=== PATIENT | female | born 1955 | race Caucasian/White ===

== ENCOUNTER 2022-07-01 07:30 | Inpatient (IN) ==
[2022-06-27 13:44] LABS: Basophils # (Auto) 0.08 K/mcL (0.00-0.30); Basophils % (Auto) 0.9 % (0.0-2.0); Eosinophils # (Auto) 0.21 K/mcL (0.00-0.70); Eosinophils % (Auto) 2.3 % (0.0-7.0); Hematocrit 41.6 % (34.1-44.9); Hemoglobin 13.6 g/dL (11.2-15.7); Lymphocytes # (Auto) 2.74 K/mcL (1.50-4.80); Lymphocytes % (Auto) 29.5 % (15.5-49.0); Mean Cell Volume 94.5 fL (80.0-100.0); Mean Corpuscular HGB Conc 32.7 g/dL (31.0-36.0); Mean Platelet Volume 11.4 fL (8.8-12.5); Monocytes % (Auto) 6.5 % (1.0-12.0); Neutrophils % (Auto) 60.5 % (38.0-78.0); Platelet Count 329 K/mcL (140-440); Red Cell Distribution Width 12.9 % (11.5-14.5); WBC 9.3 K/mcL (4.5-11.0)
[2022-06-27 13:53] LABS: INR 0.9 (0.9-1.1); Partial Thromboplastin Time 29.6 sec (20.0-37.0); Prothrombin Time 12.8 sec (11.9-14.5)
[2022-06-27 14:07] LABS: Appearance,Urine CLEAR (Clear); Bilirubin,Urine NEGATIVE (Negative); Color,Urine LT. YELLOW; Culture Indicated,Urine No; Glucose,Urine (UA) NEGATIVE (Negative); Ketones,Urine NEGATIVE (Negative); Leukocyte Esterase,Urine NEGATIVE /uL (Negative); Nitrate,Urine NEGATIVE (Negative); Protein,Urine NEGATIVE (Negative); Specific Gravity,Urine 1.015 (1.000-1.035); Urine Blood NEGATIVE ery/mcL (Negative); Urobilinogen,Urine Normal
[2022-06-27 14:22] LABS: Blood Urea Nitrogen 16 mg/dL (8-23); Calcium 9.7 mg/dL (8.6-10.4); Carbon Dioxide 27 mmol/L (22-30); Chloride 100 mmol/L (96-108); Glomerular Filtration Rate 52; Glucose 122 mg/dL (70-105)
[2022-06-27 16:05] LABS: Estimated Average Glucose(eAG) 166 mg/dL; Hemoglobin A1C 7.4 % Hgb (4.0-6.0)
--- NOTE | 2022-06-29 11:32 | EKG ---
[facility] Test Date: 2022-06-27 Pat Name: Laurita Truong Department: [facility] Room: Gender: Female Survey Statistician: : 1955 Requested By: Michael Rosado Order Number: [id number] Reading MD: Ameya Vasquez Measurements Intervals [place] Rate: 68 P: 63 DC: 160 QRS: 23 QRSD: 103 T: 9 QT: 429 QTc: 457 Interpretive Statements Sinus rhythm Low voltage, precordial leads Borderline T abnormalities, anterior leads Electronically Signed On 06-29-2022 11:31:46 PST by Ameya Vasquez /[id number]
[~2022-07-01 07:30] MED LIST: 0.9 % SODIUM CHLORIDE 9 ML, KETOROLAC 30 MG, ROPIVACAINE HCL/PF 49.5 ML, EPINEPHrine 0.... IJ SCH; ACETAMINOPHEN 500 MG TABLET PO SCH; CELECOXIB 200 MG CAPSULE PO SCH; PREGABALIN 75 MG CAPSULE PO SCH; ceFAZolin 2 GM in DEXTROSE 5% IN WATER 50 ML IV SCH; oxyCODONE 10 MG TAB.ER.12H PO SCH
[2022-07-01] MEDS ORDERED: LIDOCAINE HCL/PF 100 MG/5 ML SYRINGE IV ONE (14:19)
[2022-07-01] MEDS ORDERED: ONDANSETRON 4 MG/2 ML VIAL ONE (14:19)
[2022-07-01] MEDS ORDERED: MAGNESIUM SULFATE 2 GM/50 ML BAG IV ONE (14:19)
[2022-07-01] MEDS ORDERED: SUGAMMADEX SODIUM 200 MG/2 ML VIAL IV ONE (14:19)
[2022-07-01] MEDS ORDERED: PROPOFOL 200 MG/20 ML VIAL IV ONE (14:19)
[2022-07-01] MEDS ORDERED: ROCURONIUM 10 MG/ML ML IV ONE (14:19)
[2022-07-01] MEDS ORDERED: ROPIVACAINE HCL/PF 20 ML VIAL IJ ONE (14:19)
[2022-07-01] MEDS ORDERED: DEXAMETHASONE 10 MG/ML VIAL ONE (14:19)
[2022-07-01] MEDS ORDERED: GLYCOPYRROLATE 0.2 MG/ML VIAL IV ONE (14:19)
[2022-07-01] MEDS ORDERED: TRANEXAMIC ACID 1,000 MG/10 ML VIAL ONE (14:19)
[2022-07-01] MEDS ORDERED: SUCCINYLCHOLINE 20 MG/ML ML IV ONE (14:19)
[2022-07-01] MEDS ORDERED: KETAMINE 50 MG/ML Syringe (ANEST) IV ONE (14:19)
[2022-07-01] MEDS ORDERED: POLYETHYLENE GLYCOL 3350 17 GM PACKET PO PRN (15:12)
[2022-07-01] MEDS ORDERED: FLEETS ADULT ENEMA PR PRN (15:12)
[2022-07-01] MEDS ORDERED: ONDANSETRON 4 MG/2 ML VIAL IV PRN ×2 (15:12→15:42)
[2022-07-01] MEDS ORDERED: HYDROmorphone 1 MG/ML SYRINGE IV PRN (15:12)
[2022-07-01] MEDS ORDERED: BISACODYL 10 MG SUPP.RECT PR PRN (15:12)
[2022-07-01] MEDS ORDERED: MAGNESIUM HYDROXIDE 30 ML ORAL.SUSP PO PRN (15:12)
[2022-07-01] MEDS ORDERED: ACETAMINOPHEN 325 MG TABLET PO PRN (15:12)
[2022-07-01] MEDS ORDERED: TRANEXAMIC ACID 1,000 MG/10 ML VIAL IV SCH (15:12)
--- NOTE | 2022-07-01 15:12 | Brief Operative Note ---
Brief Operative Note Date of procedure: 07/01/22 Pre-op diagnosis: left tka loosened ligaments Post-op diagnosis: same Procedure: Left knee tka revision polyliner Grafts/Implants: Yes Anesthesia: GETA Findings: 11 to 14 mm Complications: none Surgeon: Adams [employer] Billing Analyst: Aniket Cerna Estimated blood loss (cc): 40 Tourniquet Time (Minutes): 30 Specimens Removed/Pathology: none sent Condition: stable Disposition: PACU
--- NOTE | 2022-07-01 15:33 | Discharge Plan ---
Discharge Instructions - TKA Patient Instructions Total Knee Protocol: For Total Knee: Start ROM DAPHNEY with stationary bike or rocking chair. Work on gaining full extension of knee. Posterior dislocation precautions provided. Hip abductor strengthening and gait training instructions provided. Apply Cryocuff as instructed. Additional Dressing Instructions: Leave Zip line closure patch intact until followup --May shower at anytime. Discharge Plan Patient/Caregiver Discharge Instructions Activity: ambulate only with your walker and as per physical therapy Diet: Regular Diet Prescriptions: New aspirin [Ecotrin Low Strength] 81 mg tablet,delayed release (DR/EC) 81 mg PO BID Qty: 60 0RF oxycodone 5 mg capsule 5 mg PO Q4H PRN (Reason: pain) Qty: 60 0RF docusate sodium 100 mg capsule 100 mg PO BID Qty: 60 0RF No Action trazodone 50 MG tablet 100 mg PO HS escitalopram oxalate 20 MG tablet 20 mg PO DAILY metoprolol tartrate 50 mg Tablet 50 mg PO BID mirtazapine 15 mg Tablet 15 mg PO HS spironolactone 50 mg Tablet 50 mg PO BID Rybelsus 3 mg Tablet 6 mg PO QAM Culturelle 10 billion cell Capsule 1 cap PO DAILY cranberry 500 mg Capsule 500 mg PO BID Rx Instructions: administer with a meal Acnetane 2 cap PO DAILY atorvastatin 40 mg Tablet 40 mg PO QPM losartan 25 mg Tablet 25 mg PO QPM Other Ambulatory Orders: Physical Therapy DC - TKA (Routine) Location: None Selected Ordered By: Aniket Cerna Toilet Riser Discharge Order (ONCE) Location: None Selected Ordered By: Aniket Cerna Walker (ONCE) Location: None Selected Ordered By: Aniket Cerna Follow Up Plan Follow up with: Aniket Cerna PA-C [Physician Image Archivist] - Patient Disposition: Home, Self-Care Prognosis: Good Rehab Potential: Good I certify that the patient requires SNF services: No Overall status at discharge: patient is progressing back to baseline Discharge Orders: Discharge Order (Routine); Ordered 07/02/22 Ordered By: Aniket Cerna
--- NOTE | 2022-07-01 15:40 | Operative Note ---
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 PROCEDURE: Left poly liner exchange or revision from a size 11 mm poly to a size 14 mm poly. SURGEON: Adams Wagner M.D. INDUSTRIAL ENGINEERING INTERN: Aniket Cerna PA-C. The PA's assistance was required for the safe and efficient completion of the entire case. This provider's expertise and technical skill were required throughout the case. The PA assisted with preoperative coordination, intraoperative retraction, wound closure, dressing and splint application, as well as postoperative documentation and care coordination. ANESTHESIA: General LMA anesthesia. COMPLICATIONS: None. TOURNIQUET TIME: 30 minutes at 250 pounds of pressure. DISPOSITION: To PACU. DESCRIPTION OF PROCEDURE: The patient was brought to the operating room, put to sleep with general LMA anesthesia. Once asleep, the patient had the left leg sterilely prepped and draped. A timeout was performed, confirming it as the operative site. A midline incision was made. Midvastus approach was performed. Tourniquet was inflated to 250 pounds of pressure. We exposed the joint, showing no signs of infection. We thoroughly irrigated the joint and removed the poly liner. The PCL appeared to be intact, but there was significant looseness of the ligaments. At this point, we then trialed the size 14 poly. This maintained motion but gave the patient stability. We irrigated thoroughly and placed the size 14 mm deep dish poly. We thoroughly irrigated and closed the capsule with #1 Stratafix and adhesive closure on the skin level. The patient tolerated this well. Tourniquet was deflated at 30 minutes. RBH:carlito Job ID: [id number] Doc ID: [id number] Adams Wagner MD
[2022-07-01] MEDS ORDERED: PROMETHAZINE 25 MG/ML VIAL IM PRN (15:42)
[2022-07-01] MEDS ORDERED: ACETAMINOPHEN 1,000 MG/100 ML BAG IV ONE (15:42)
[2022-07-01] MEDS ORDERED: PROMETHAZINE 25 MG/ML VIAL IV PRN (15:42)
[2022-07-01] MEDS ORDERED: METOPROLOL TARTRATE 5 MG/5 ML VIAL IV PRN (15:42)
[2022-07-01] MEDS ORDERED: HYDROmorphone 0.5 MG/0.5 ML SYRINGE IV PRN (15:42)
[2022-07-01] MEDS ORDERED: NALOXONE HCL 0.4 MG/ML VIAL IV PRN (15:42)
[2022-07-01] MEDS ORDERED: MEPERIDINE 25 MG/ML VIAL IV PRN (15:42)
[2022-07-01] MEDS ORDERED: IPRATROPIUM/ALBUTEROL 3 ML AMPUL.NEB NEB PRN (15:42)
[2022-07-01] MEDS ORDERED: LACTATED RINGERS 250 ML IV PRN (15:42)
[2022-07-01] MEDS ORDERED: MEPERIDINE 50 MG/ML VIAL IM PRN (15:42)
[2022-07-01] MEDS ORDERED: morphine 2 MG/ML VIAL IV PRN (15:42)
[2022-07-01] MEDS ORDERED: METHOCARBAMOL 1,000 MG/10 ML VIAL IV PRN (15:42)
[2022-07-01] MEDS ORDERED: LACTATED RINGERS 1,000 ML IV SCH (15:45)
[2022-07-01] MEDS ORDERED: KETOROLAC 15 MG/ML VIAL IV PRN (15:47)
[2022-07-01] MEDS: fentaNYL 100 MCG/2 ML VIAL IV PRN ×2 (15:50→15:55)
--- NOTE | 2022-07-01 16:10 | XRay Report ---
INDICATION: Post-Op Total Knee TECHNIQUE: AP and crosstable lateral left knee COMPARISON: Previous examination dated 11/27/2021 FINDINGS:Again demonstrated is left total knee arthroplasty. Anatomic alignment of prosthetic components. There is postsurgical soft tissue and intra-articular gas IMPRESSION: Left total knee arthroplasty Interpreted and Authenticated by: Wilmer Yeung 07/01/22
[2022-07-01] MEDS: 0.45 % SODIUM CHLORIDE 1,000 ML IV SCH (16:31)
[2022-07-01] MEDS: HYDROcodone/APAP 10/325MG TABLET PO PRN ×2 (16:41→21:21)
[2022-07-01] MEDS ORDERED: CRANBERRY 500 MG PO SCH (21:00)
[2022-07-01] MEDS ORDERED: traZODone HCL 50 MG TABLET PO SCH (21:00)
[2022-07-01] MEDS ORDERED: ATORVASTATIN 40 MG TABLET PO SCH (21:00)
[2022-07-01] MEDS ORDERED: TEMAZEPAM 15 MG CAPSULE PO PRN (21:00)
[2022-07-01] MEDS ORDERED: LOSARTAN 25 MG TABLET PO SCH (21:00)
[2022-07-01] MEDS ORDERED: MIRTAZAPINE 15 MG TABLET PO SCH (21:00)
[2022-07-01] MEDS ORDERED: SENNOSIDES 1 TABLET PO SCH (21:00)
[2022-07-01] MEDS: SPIRONOLACTONE 25 MG TABLET PO SCH (21:17)
[2022-07-01] MEDS: ASPIRIN 81 MG TAB.CHEW PO SCH (21:17)
[2022-07-01] MEDS: DOCUSATE SODIUM 100 MG CAPSULE PO SCH (21:17)
[2022-07-01] MEDS: METOPROLOL TARTRATE 50 MG TABLET PO SCH (21:18)
[2022-07-01] MEDS: 0.9 % SODIUM CHLORIDE 10 ML SYRINGE IV SCH (21:20)
[2022-07-01] MEDS: ceFAZolin 1 GM VIAL IV SCH (21:20)
[2022-07-02] MEDS: HYDROcodone/APAP 10/325MG TABLET PO PRN ×3 (02:05→10:07)
[2022-07-02] MEDS: 0.45 % SODIUM CHLORIDE 1,000 ML IV SCH (03:24)
[2022-07-02] MEDS: ceFAZolin 1 GM VIAL IV SCH (05:52)
[2022-07-02] MEDS: 0.9 % SODIUM CHLORIDE 10 ML SYRINGE IV SCH (05:53)
--- NOTE | 2022-07-02 07:39 | Orthopedic Progress Note ---
SUBJECTIVE Subjective Patient information: Note initiated : 07/02/22 at 7:38 am Service Date, if different from initiated Date: [] Patient: Laurita Truong 66 y/o F admitted on 07/01/22 for Left Total Knee Arthroplasty Revision. Chief Complaint: [Pt is stable this morning on post operative day without any significant concerns or complaints. Patients vital signs have remained stable. Patients dressing is dry and is grossly intact from a neurovascular and motor standpoint. Patients 10 point ROS is otherwise negative. ] Constitutional Vitals: Vital Signs Temp Pulse Resp BP Pulse Ox O2 Del Method O2 Flow Rate 98.4 F 68 20 127/72 93 94 07/02/22 07:34 07/02/22 07:34 07/02/22 07:34 07/02/22 07:34 07/02/22 07:34 07/02/22 07:34 07/01/22 19:13 Period Temp Pulse Resp BP Sys/Lopez Pulse Ox O2 Del Method O2 Flow Rate Last 24 Hr 97.0 F-98.4 F 59-82 10-21 78-136/61-95 62-100 Room Air-Simple Mask 0-94 Intake and Output 07/01/22 07/02/22 07/02/22 19:59 03:59 11:59 Intake Total 1490 1378 240 Output Total 40 400 Balance 1450 1378 -160 Weight 262 lb 1.6 oz 269 lb 6.4 oz Intake & Output: Intake & Output 07/01/22 07/02/22 07/02/22 19:59 03:59 11:59 Intake Total 1490 1378 240 Output Total 40 400 Balance 1450 1378 -160 Weight 262 lb 1.6 oz 269 lb 6.4 oz Intake: IV 50 698 Sodium Chloride 0.45% 1,000 ml 698 @ 100 mls/hr IV .Q10H MAKENZIE Rx#: [id number] Ancef 2 gm In Dextrose 5% in 50 Water 50 ml @ 100 mls/hr IV PREOP MAKENZIE Rx#:[id number] Oral 840 680 240 IV - Manual Only 600 Output: Void Amount 400 Estimated Blood Loss 40 Other: Meal Dinner Percent of Meal Consumed 100% Feeding Ability Assist with Tray Set Up Urine Color Dark Yellow # Voids 1 Extremities Exam Extremities exam: Present normal capillary refill, normal inspection, Haile's sign, Foot pink and warm and neurovascular intact OBJ DATA Labs CBC & Chem 7: 06/27/22 10:05 06/27/22 10:04 Meds: Medications Acetaminophen (Acetaminophen 325 Mg Tablet) 650 mg PO Q6HP PRN; Protocol PRN Reason: Per Pain Protocol/Fever > 101 Hydrocodone Bitart/Acetaminophen (Hydrocodone/Apap 10/325mg Tablet) 1 - 2 tab PO Q4HP PRN; Protocol PRN Reason: Per Pain Protocol Last Admin: 07/02/22 05:52 Dose: 2 tab Aspirin (Aspirin 81 Mg Tab.Chew) 81 mg PO BID PENDING SALE TO [facility] Last Admin: 07/01/22 21:17 Dose: 81 mg Atorvastatin Calcium (Atorvastatin 40 Mg Tablet) 40 mg PO QPM PENDING SALE TO [facility] Last Admin: 07/01/22 21:18 Dose: 40 mg Bisacodyl (Bisacodyl 10 Mg Supp.Rect) 10 mg OH Q2-3DAYS PRN PRN Reason: Constipation Docusate Sodium (Docusate Sodium 100 Mg Capsule) 100 mg PO BID PENDING SALE TO [facility] Last Admin: 07/01/22 21:17 Dose: 100 mg Escitalopram Oxalate (Escitalopram 20 Mg Tablet) 20 mg PO DAILY PENDING SALE TO [facility] Hydromorphone HCl (Hydromorphone 1 Mg/Ml Syringe) 0.5 - 2 mg IV Q2HP PRN; Protocol PRN Reason: Per Pain Protocol Sodium Chloride (Sodium Chloride 0.45%) 1,000 mls @ 100 mls/hr IV .Q10H PENDING SALE TO [facility] Last Admin: 07/02/22 03:24 Dose: Not Given Lactobacillus Rhamnosus (Lactobacillus 1 Capsule) 1 cap PO DAILY PENDING SALE TO [facility] Losartan Potassium (Losartan 25 Mg Tablet) 25 mg PO QPM PENDING SALE TO [facility] Last Admin: 07/01/22 21:18 Dose: 25 mg Magnesium Hydroxide (Magnesium Hydroxide 30 Ml Oral.Susp) 30 ml PO BIDP PRN PRN Reason: Constipation Metoprolol Tartrate (Metoprolol Tartrate 50 Mg Tablet) 50 mg PO BID PENDING SALE TO [facility] Last Admin: 07/01/22 21:18 Dose: 50 mg Mirtazapine (Mirtazapine 15 Mg Tablet) 15 mg PO HS PENDING SALE TO [facility] Last Admin: 07/01/22 21:21 Dose: 15 mg Ondansetron HCl (Ondansetron 4 Mg/2 Ml Vial) 4 mg IV Q4HP PRN PRN Reason: Nausea And Vomiting Semaglutide [ Rybelsus] 7 Mg Tablet 1 dose PO DAILY PENDING SALE TO [facility] Polyethylene Glycol (Polyethylene Glycol 3350 17 Gm Packet) 17 gm PO DAILYP PRN PRN Reason: Constipation Senna (Sennosides 1 Tablet) 2 tab PO HS PENDING SALE TO [facility] Last Admin: 07/01/22 21:19 Dose: 2 tab Sodium Biphosphate/Sodium Phosphate (Fleets Adult Enema) 1 dose OH Q3-4DAYS PRN PRN Reason: Constipation Sodium Chloride (0.9 % Sodium Chloride 10 Ml Syringe) 10 ml IV Q8 PENDING SALE TO [facility] Last Admin: 07/02/22 05:53 Dose: 10 ml Spironolactone (Spironolactone 25 Mg Tablet) 50 mg PO BID PENDING SALE TO [facility] Last Admin: 07/01/22 21:17 Dose: 50 mg Temazepam (Temazepam 15 Mg Capsule) 15 mg PO HSP PRN PRN Reason: Insomnia A/P Narrative A/P Narrative: The patient has been educated regarding dressing care, , restrictions, and f ollow up appointments. The patient has had all necessary DME prescribed. The patient has remained relatively stable during their hospital course. Time Spent With Patient Time: Total time spent is greater than 50% in coordination of care (as documented) at patient's floor/unit and/or counseling patient: Total time spent with greater than 50% in coordination of care (as documented) at patient's floor/unit and/or counseling patient:: less than 15 minutes
[2022-07-02] MEDS: SPIRONOLACTONE 25 MG TABLET PO SCH (08:08)
[2022-07-02] MEDS: METOPROLOL TARTRATE 50 MG TABLET PO SCH (08:08)
[2022-07-02] MEDS: ASPIRIN 81 MG TAB.CHEW PO SCH (08:08)
[2022-07-02] MEDS: DOCUSATE SODIUM 100 MG CAPSULE PO SCH (08:08)
[2022-07-02] MEDS ORDERED: LACTOBACILLUS 1 CAPSULE PO SCH (09:00)
[2022-07-02] MEDS ORDERED: [UNRECOGNIZED DRUG - OTHER] PO SCH (09:00)
[2022-07-02] MEDS ORDERED: ESCITALOPRAM 20 MG TABLET PO SCH (09:00)
[2022-07-02] MEDS ORDERED: Semaglutide [Rybelsus] 7 MG Tablet PO SCH (09:00)
== END 2022-07-02 11:45 | disposition home or self-care (01) | DRG 489 ==
LOC: MEDSUR 12:11
PROVIDERS: ADMIT Orthopaedic Surgery; ATTEND Orthopaedic Surgery